=== PATIENT | female | born 1995 | race African-American/Black ===

== ENCOUNTER 2017-10-17 18:49 | Emergency (ER) | payer MEDICAID ==
[~2017-10-17 18:49] MED LIST: ANUS25SU RECTAL; PROC2.5C RECTAL
[2017-10-17 18:51] VITALS: BP 120/75; PULSE 84; RESP 16; TEMP 98.3; O2SAT 97
--- NOTE | 2017-10-17 20:03 | PD ---
HPI Chief Complaint: Cold / Flu Symptoms Time Seen by Provider: 19:46 Travel History International Travel<30 days: No Contact w/Intl Traveler<30days: No Traveled to known affect area: No History of Present Illness HPI 22-year-old black female presents to emergency department requesting evaluation of possible flu. She's been sick now for the last 24 hours. She has had subjective fever and chills, headache, sore throat, cough, congestion, myalgias , arthralgias or general malaise. She denies any nausea vomiting. No bowel pain or diarrhea. No dysuria or frequency. No rash or lesion. She denies any diabetes, hypertension or asthma. History Past Medical Histgory Medical History: Denies Significant Hx Tetanus Vaccination: < 5 Years LMP: 10/09/17 Past Surgical History Surgical History: No Previous Surgery Social History Alcohol Use: No Tobacco Use: No Allergies-Medications (Allergen,Severity, Reaction): Coded Allergies: No Known Allergies (Verified , 08/09/16) Reported Meds & Prescriptions Reported Meds & Active Scripts Active Proctosol Hc (Hydrocortisone Rectal) 2.5% Cream 1 Applic RECTAL BID PRN Anusol-Hc Supp (Hydrocortisone Supp) 25 Mg Supp 25 Mg RECTAL BID 14 Days Review of Systems Except as stated in HPI: all other systems reviewed are Neg Physical Exam Narrative GENERAL: Well-developed, well-nourished in no apparent distress. Nontoxic appearing. HEAD: Normocephalic, atraumatic. EYES: Pupils equal round and reactive. Extraocular motions intact. No scleral icterus. No injection or drainage. ENT: Nose clear. Throat without erythema, tonsillar hypertrophy or exudate. Uvula midline. Airway patent. NECK: Trachea midline. Supple, nontender, moves head freely. No central bony tenderness or spasm. CARDIOVASCULAR: Regular rate and rhythm without murmurs, gallops, or rubs. RESPIRATORY: Clear to auscultation. Breath sounds equal bilaterally. No wheezes , rales, or rhonchi. GASTROINTESTINAL: Abdomen soft, non-tender, nondistended. No hepato-splenomegaly , or palpable masses. No guarding. EXTREMITIES: No clubbing, cyanosis, or edema. No joint tenderness. BACK: Nontender without deformity. No flank tenderness. NEUROLOGICAL: Awake, alert and oriented x 3 .Cranial nerves grossly intact. Motor and sensory grossly within normal limits. Normal speech. Data Data Last Documented VS Vital Signs Date Time Temp Pulse Resp B/P (MAP) Pulse Ox O2 Delivery O2 Flow Rate FiO2 10/17/17 18:51 98.3 84 16 120/75 (90) 97 MDM Medical Screen Exam Complete: Yes Emergency Medical Condition: No Differential Diagnosis MDM: High Differential diagnoses: Pneumonia, bronchitis, URI, asthma, RAD, legionnaire's disease, SARS, ARDS, influenza, bronchiolitis, RSV,PE,CHF Narrative Course A medical screening exam was performed: At the time of evaluation the presenting medical condition was determined not to be of an emergent nature. The patient was given the option of receiving additional care, but declined. Patient was given options for additional community resources from which to obtain care. The Patient Has Been advised to seek medical attention for their presenting complaint. The patient has been advised to return to the ER at any time if an emergent condition develops. Primary Impression: Encounter for medical screening examination Condition: [place] Oct 17, 2017 20:03
== END 2017-10-17 20:15 | disposition left against medical advice (07) ==
LOC: NEPK 18:49
DX: J00 Acute nasopharyngitis [common cold] (principal)
CPT/HCPCS: 99281

== ENCOUNTER 2017-11-03 11:53 | Emergency (ER) | payer MEDICAID ==
[2017-11-03 11:55] VITALS: BP 113/76; PULSE 70; RESP 14; O2SAT 99
--- NOTE | 2017-11-03 12:42 | RADRPT ---
EXAM DATE/TIME: 11/03/2017 12:24 [facility] COMPARISON: No previous studies available for comparison. INDICATIONS : Right ankle pain, woke up with it. MEDICAL HISTORY : None. SURGICAL HISTORY : None. ENCOUNTER: Initial ACUITY: 1 day PAIN SCORE: 10/10 LOCATION: Right ankle FINDINGS: Two view examination was performed of the right ankle. The bony structures are in normal alignment. No evidence of fracture, dislocation, or soft tissue swelling. No radiopaque foreign bodies are see n. Bony mineralization is normal. CONCLUSION: Negative for fracture or dislocation. Follow up in 7-10 days is suggested if symptoms persist. Aries Padilla MD FACR on November 03, 2017 at 12:38 Board Certified Radiologist. This report was verified electronically.
[2017-11-03 14:03] VITALS: TEMP 98.2
[2017-11-03] MEDS ORDERED: KETOROLAC TROMETHAMINE 60 MG/2 ML (IM) VIAL IM ONE (14:15)
--- NOTE | 2017-11-03 14:26 | PD ---
HPI Chief Complaint: Musculoskeletal Complaint Time Seen by Provider: 14:00 Travel History International Travel<30 days: No Contact w/Intl Traveler<30days: No Traveled to known affect area: No History of Present Illness HPI 22yo F with no PMH presents to the ED with c/o right ankle pain since this morning. Said she was doing squats yesterday and she has not exercise for a while. However, does not remember twisting her ankle. Denies any fever, IVDA, chest pain, sob, n/v, abdominal pain, focal weakness or numbness. Pain with ambulating. PFSH Past Medical History Diminished Hearing: No Musculoskeletal: Yes (SCOLIOSIS) Reproductive: Yes (PT STATES THAT SHE IS SEXUALLY ACTIVE) Immunizations Current: Yes ?: Not LMP: 10/09/17 : 1 : 1 Social History Alcohol Use: No Tobacco Use: No Substance Use: No Allergies-Medications (Allergen,Severity, Reaction): Coded Allergies: No Known Allergies (Verified , 08/09/16) Reported Meds & Prescriptions Reported Meds & Active Scripts Active No Active Prescriptions or Reported Medications Review of Systems Except as stated in HPI: all other systems reviewed are Neg Physical Exam Narrative GENERAL: 22yo F in mild distress. SKIN: Focused skin assessment warm/dry. HEAD: Atraumatic. Normocephalic. EYES: Pupils equal and round. No scleral icterus. No injection or drainage. CARDIOVASCULAR: Regular rate and rhythm. No murmur appreciated. RESPIRATORY: No accessory muscle use. Clear to auscultation. Breath sounds equal bilaterally. GASTROINTESTINAL: Abdomen soft, non-tender, nondistended. No rebound tenderness or guarding. MUSCULOSKELETAL: No obvious deformities. No clubbing. No cyanosis. No edema. NEUROLOGICAL: Right ankle: Mild edema and ttp medial malleolus and dorsum of foot. DP2+. Sensation intact. PSYCHIATRIC: Appropriate mood and affect; insight and judgment normal. Data Data Last Documented VS Vital Signs Date Time Temp Pulse Resp B/P (MAP) Pulse Ox O2 Delivery O2 Flow Rate FiO2 11/03/17 14:03 98.2 11/03/17 11:55 70 14 99 Orders Orders Ankle, Limited (Ap&Lat) (11/03/17 ) Ketorolac Inj (Toradol Inj) (11/03/17 14:15) [facility] Medical Decision Making Medical Screen Exam Complete: Yes Emergency Medical Condition: Yes Differential Diagnosis Ankle sprain vs. fracture vs. gout Narrative Course 22yo F with right ankle pain. Xray of right ankle showed no fracture or dislocation. Ordered toradol for pain. However, my nurse inform me that when she went to administer the medication, pt was no longer there. We could not find the pt anywhere and assumed pt left without full evaluation. Diagnosis Primary Impression: Ankle pain Qualified Codes: M25.571 - Pain in right ankle and joints of right foot Patient Instructions: General Instructions Departure Forms: Tests/Procedures Additional Instructions: Please follow up with your primary care physician in 1-2 days. Return to the ED for evaluation if you change your mind. Med/Other Pt SpecificInfo: No Change to Meds Scripts No Active Prescriptions or Reported Meds Disposition: 07 AGAINST MEDICAL ADVICE Condition: Stable Layla Best DO Nov 03, 2017 14:26
== END 2017-11-03 15:11 | disposition left against medical advice (07) ==
LOC: NEPE 11:53
DX: M25.571 Pain in right ankle and joints of right foot (principal); M41.9 Scoliosis, unspecified
CPT/HCPCS: 73600; 99283

== ENCOUNTER 2018-02-04 14:44 | Emergency (ER) | payer OTHER, MEDICAID ==
[~2018-02-04] VITALS: Ht 160 cm; Wt 68.0 kg
[2018-02-04 14:55] VITALS: BP 132/60; PULSE 75; RESP 18; TEMP 98.4; O2SAT 99
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
[2018-02-04] MEDS ORDERED: CYCLOBENZAPRINE HCL 10 MG TAB PO ONE (18:15)
[2018-02-04] MEDS ORDERED: IBUPROFEN 400 MG TAB PO ONE (18:15)
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
== END 2018-02-04 20:02 | disposition home or self-care (01) ==
LOC: NEPD 14:44
DX: S39.012A Strain of muscle, fascia and tendon of lower back, initial encounter (principal); V89.2XXA Person injured in unspecified motor-vehicle accident, traffic, initial encounter; M41.9 Scoliosis, unspecified
CPT/HCPCS: 70450; 71045; 72050; 72072; 72110; 73130; 84703; 99284